=== PATIENT | male | born 1990 | race Caucasian/White ===

== ENCOUNTER 2020-09-26 06:31 | Emergency (ER) | payer OTHER ==
[~2020-09-26] VITALS: Ht 182.9 cm; Wt 90.7 kg
[2020-09-26 07:48] LABS: ABSOLUTE EOSINOPHILS 0.2 thou/uL (0.0-0.7); ABSOLUTE LYMPHOCYTES 1.6 thou/uL (0.8-5.3); ABSOLUTE MONOCYTES 0.8 thou/uL (0.0-1.2); ABSOLUTE NEUTROPHILS 6.2 thou/uL (1.6-8.1); BASOPHILS 0.2 %; EOSINOPHILS 2.5 %; HEMATOCRIT 42.2 % (42.0-52.0); HEMOGLOBIN 14.2 gm/dL (14.0-18.0); LYMPHOCYTES 18.6 %; MCH 27.8 pg (26.0-34.0); MCHC 33.7 g/dL (28.0-37.0); MCV 82.7 fL (80.0-100.0); MONOCYTES 8.5 %; MPV 8.9 fl. (7.2-11.1); NUCLEATED RBCS 0 /100WBC; PLATELET COUNT* 192 thou/uL (150-400); POLYS 70.2 %; RDW-CV 14.3 % (10.5-14.5); WBC 8.8 thou/uL (4.0-11.0)
[2020-09-26 08:08] LABS: CREATININE 1.1 mg/dL (0.6-1.3); POTASSIUM 3.9 mmol/L (3.5-5.1)
[2020-09-26 08:31] LABS: ALBUMIN 3.8 g/dL (3.4-5.0); TOTAL BILIRUBIN 0.3 mg/dL (<0.1-1.0)
--- NOTE | 2020-09-26 10:29 | EKG ---
[place] [address] ELECTROCARDIOGRAM REPORT Name: MERLY HAILE JR Room: [facility]#: [id number] Admission: 09/26/20 Attend Phys: Discharge: Date of : 88 Date of Service: 09/26/20 0639 Report #: [id number] THIS REPORT FOR: //name// [facility] ED Test Date: 2020-09-26 Test Time: 06:39:51 Pat Name: MERLY HAILE Department: Room: Gender: Mobile Tester: [place] : 1990 Requested By: Sandrita Duque Order Number: [id number] MD: Kevin Walsh Measurements Intervals [place] Rate: 77 P: 74 DE: 134 QRS: 90 QRSD: 96 T: 41 QT: 350 QTc: 397 Interpretive Statements Sinus rhythm Left atrial enlargement Borderline right axis deviation Nondiagnostic inferior Q waves ST elev, probable normal early repol pattern No previous ECG available for comparison Electronically Signed On 09-26-2020 10:29:14 CDT by Kevin Walsh [email or web address] <ELECTRONICALLY SIGNED> By: Kevin Walsh MD, [facility] 09/26/20 1029 0639 0639 Kevin Walsh MD, [facility] /EPI
[2020-09-26 12:45] VITALS: BP 127/66
--- NOTE | 2020-09-28 10:20 | EKG ---
[place] [address] ELECTROCARDIOGRAM REPORT Name: MERLY HAILE JR Room: [facility]#: [id number] Admission: 09/26/20 Attend Phys: Discharge: 09/26/20 Date of : 88 Date of Service: 09/26/20 1211 Report #: [id number] THIS REPORT FOR: //name// [facility] ED Test Date: 2020-09-26 Test Time: 12:11:04 Pat Name: MERLY HAILE Department: Room: Gender: Senior Patient Account Representative: : 1990 Requested By: Sandrita Duque Order Number: [id number] Reading MD: Reece Montero Measurements Intervals [place] Rate: 64 P: 79 NM: 132 QRS: 86 QRSD: 96 T: 50 QT: 379 QTc: 391 Interpretive Statements Sinus rhythm Probable left atrial enlargement ST elev, probable normal early repol pattern Baseline wander in lead(s) V2 Compared to ECG 09/26/2020 06:39:51 ST (T wave) deviation still present Electronically Signed On 09-28-2020 10:20:07 CDT by Reece Montero [email or web address] <ELECTRONICALLY SIGNED> By: Reece Montero MD, [facility] 09/28/20 1020 121 121 Reece Montero MD, [facility] /EPI
== END 2020-09-26 12:45 | disposition home or self-care (01) ==
LOC: M.ERS 06:31
PROVIDERS: Emergency Medicine
DX: R07.89 Other chest pain (principal); Z20.822 Contact with and (suspected) exposure to COVID-19